=== PATIENT | male | born 1950 | race Caucasian/White ===

== ENCOUNTER 2021-06-21 12:10 | Observation (INO) | payer MEDICARE ==
[~2021-06-21] VITALS: Ht 182.9 cm; Wt 75.0 kg
--- NOTE | 2021-06-21 12:12 | NUR ---
PATIENT TO ROOM VIA WHEELCHAIR. ASSISTED TO [facility] FOR BM. BEDSIDE TRIAGE COMPLETED.
--- NOTE | 2021-06-21 13:00 | NUR ---
PT RESTING IN BED, FEELS THE URGE TO HAVE BM BUT CAN NOT
[2021-06-21 13:18] LABS: HEMATOCRIT 44.7 % (39.0-50.0); HEMOGLOBIN 14.9 g/dl (14.0-18.0); IMMATURE GRANULOCYTES 2.5 % (0.0-5.0); MEAN CELL VOLUME 92.7 fL CALC (80.0-100.0); MEAN CORPUSCULAR HGB 30.9 pG CALC (26.0-32.0); MEAN CORPUSCULAR HGB CONC 33.3 g/dL CAL (32.0-36.0); NEUT# 8.5 thou/uL (1.82-7.42); RED BLOOD COUNT 4.82 mill/uL (4.70-6.10); URINE BILIRUBIN - DIPSTICK NEGATIVE (NEGATIVE); URINE BLOOD DIPSTICK NEGATIVE (NEGATIVE); URINE COLOR YELLOW; URINE GLUCOSE - DIPSTICK >=1000 mg/dL (NEGATIVE); URINE KETONE 15 mg/dL (NEGATIVE); URINE LEUK ESTERASE NEGATIVE (NEGATIVE); URINE PH 5.5 (4.5-8.0); URINE PROTEIN - DIPSTICK NEGATIVE (NEG-TRACE); URINE SPECIFIC GRAVITY 1.015; URINE UROBILINOGEN - DIPSTICK 0.2 E.U./dL (0.2)
[2021-06-21 13:19] LABS: URINE NITRITE - DIPSTICK NEGATIVE (Negative)
[2021-06-21 13:30] LABS: ALBUMIN 3.5 g/dL (3.2-5.0); ALKALINE PHOSPHATASE 85 u/l (38-126); ANION GAP 14 (6-22 (CALC)); BILIRUBIN, TOTAL 0.7 mg/dL (0.0-1.4); BUN 23 mg/dL (8-23); BUN/CREATININE RATIO 30 (12-20 (CALC)); CARBON DIOXIDE 25 mmol/l (22-30); CHLORIDE 97 mmol/l (95-108); CREATININE 0.8 mg/dL (0.7-1.3); GFR > 60 ML/MIN (>=60 (CALC)); GFR FOR AFR.AMER. > 60 ML/MIN (>=60 (CALC)); POTASSIUM 4.7 mmol/l (3.5-5.1); SGOT/AST 16 u/l (19-48); SODIUM 131 mmol/l (137-146); TOTAL PROTEIN 6.2 g/dL (6.3-8.2)
--- NOTE | 2021-06-21 14:00 | NUR ---
PT HAD 2 MEDIUM SIZED LOOSE STOOL
[2021-06-21] MEDS ORDERED: MELOXICAM7.5 MG PO (15:09)
[2021-06-21] MEDS ORDERED: PREDNISONE5 MG PO (15:09)
[2021-06-21] MEDS ORDERED: FOLIC ACID1 MG PO (15:09)
[2021-06-21] MEDS ORDERED: METHOTREXATE S2.5 MG PO (15:09)
--- NOTE | 2021-06-21 15:15 | NUR ---
PT TRANSPORTED TO FLOOR VIA WHEELCHAIR, REPORT GIVEN TO ABY REGAN
--- NOTE | 2021-06-21 15:26 | NUR ---
PT ARRIVED TO [facility] ROOM 272 VIA WHEELCHAIR ACCOMPAINED BY ER STAFF. PT TO BSC FOR BM AT THIS TIME.
--- NOTE | 2021-06-21 15:26 | NUR ---
RECIEVED REPORT FROM SHEREEN COBOS
--- NOTE | 2021-06-21 15:40 | NUR ---
PT BACK SITTING ON SIDE OF BED. PT IS A/O X3. ASSESSMENT AND VITALS COMPLETED. RESPIRATIONS ARE EVEN AND UNLABORED WITH NO DISTRESS ON ROOM AIR. LUNG SOUNDS ARE CLEAR. HEART RHYTHM NORMAL. BOWEL SOUNDS ARE ACTIVE, BM X2 SINCE ARRIVING TO FLOOR. PT REFUSES ANY BOWEL REGIMENS DUE TO BEING UNABLE TO STOP HAVING BM. PULSES STRONG. #20G RFA INFUSING WITH IVF PER ORDER, SITE REMAINS HEALTHY AND PATENT. SKIN INTACT. ACCUCHECK RESULTING IN 310, SCHEDULED LEVEMIR ADMINISTERED. PT TOLERATED WELL.PT DENIES OF ANY PAINS OR DISCOMFORTS AT THIS TIME. ALL SAFTEY PRECAUTIONS ARE IN PLACE WITH CALL LIGHT IN REACH WITH AT BEDSIDE.
[2021-06-21 15:45] VITALS: BP 156/89
--- NOTE | 2021-06-21 16:12 | NUR ---
ANTONIA,ANRP AT BEDSIDE
--- NOTE | 2021-06-21 17:03 | NUR ---
PT COMPLAINS OF UNABLE TO VOID. 50ML OF YELLOW URINE EMPTIED FROM URINAL WHEN ARRIVED TO FLOOR. BLASDDER SCAN COMPLETED RESULTING IN 480. PELVIC DISTENDED. PT COMPLAINS OF DISCOMFORT. SIENA KNIGHT INFORMED. ORDERS TO PLACE TORIBIO CATH.
--- NOTE | 2021-06-21 17:21 | NUR ---
16F TORIBIO CATH INSTERED WITH STERILE TECHNIQUE. PT TOLERATED WELL. INSTANT CLEAR YELLOW URINE RETURN NOTED. PT EDUCATED ON TORIBIO CATH USE. PT VERBALIZED UNDERSTANDING.
--- NOTE | 2021-06-21 17:46 | NUR ---
POST RESIDUAL BLADDER SCAN COMPLETED, RESULTING IN 0. 500 ML OF CLEAR YELLOW URINE NOTED. PT STATES HE FEELS MUCH BETTER. TORIBIO REMAINS IN PLACE, FLOWING WITH GRAVITY.
--- NOTE | 2021-06-21 18:50 | NUR ---
REPORT RECIEVED FROM Kristofer MCKEON LPN
[2021-06-21 19:00] VITALS: BP 146/80
--- NOTE | 2021-06-21 20:40 | NUR ---
ASSESSMENT COMPLETED AT THIS TIME LUNG SOUNDS ARE CLEAR. HEART RHYTHM NORMAL. BOWEL SOUNDS ARE ACTIVE, PER PATIENT, MULTIPLE BOWEL MOVEMENT SINCE ARRIVING TO FLOOR. REFUSING STOOL SOFTNER AT THIS TIME. #20G RFA INFUSING WITH IVF PER ORDER, SITE REMAINS HEALTHY AND PATENT. SKIN INTACT.PT DENIES OF ANY PAINS AT THIS TIME. CALL LIGHT AND BEDSIDE TABLE WITHIN REACH.
--- NOTE | 2021-06-22 00:45 | NUR ---
PATIENT REQUESTING A BLANKET AND SOMETHING LIGHT TO EAT. BLANKET PROVIDED AND PUDDING PER REQUEST. CALL LIGHT AND BEDSIDE TABLE WITHIN REACH.
[2021-06-22 04:00] VITALS: BP 128/58
--- NOTE | 2021-06-22 04:05 | NUR ---
PATIENT SLEEPING SOUNDLY, AWOKEN BY WRITTER, NO APPARENT NEEDS AT THIS TIME. CALL LIGHT AND BEDSIDE TABLE WIHTIN REACH.
[2021-06-22 05:50] LABS: HEMATOCRIT 40.9 % (39.0-50.0); HEMOGLOBIN 13.9 g/dl (14.0-18.0); MEAN CELL VOLUME 90.9 fL CALC (80.0-100.0); MEAN CORPUSCULAR HGB 30.9 pG CALC (26.0-32.0); RED BLOOD COUNT 4.5 mill/uL (4.70-6.10); RED CELL DISTRI WIDTH 13.1 % (11.5-15.5)
[2021-06-22 06:05] LABS: BUN 19 mg/dL (8-23); BUN/CREATININE RATIO 32 (12-20 (CALC)); CALCULATED LDLCHOLESTEROL 139 mg/dL (62-129 (CALC)); CARBON DIOXIDE 25 mmol/l (22-30); CHLORIDE 105 mmol/l (95-108); CHOLESTEROL HDL RATIO 5.4 (<4.4 (CALC)); CREATININE 0.6 mg/dL (0.7-1.3); GFR > 60 ML/MIN (>=60 (CALC)); GFR FOR AFR.AMER. > 60 ML/MIN (>=60 (CALC)); HDL CHOLESTEROL 37 mg/dL (>=40); SODIUM 137 mmol/l (137-146); TOTAL CHOLESTEROL 200 mg/dl (0-199); TOTAL TRIGLYCERIDES 123 mg/dl (30-149); VLDL CHOLESTROL 25 mg/dl (0-38 (CALC))
[2021-06-22 06:39] LABS: ANION GAP 11 (6-22 (CALC)); POTASSIUM 3.6 mmol/l (3.5-5.1)
[2021-06-22 07:15] VITALS: BP 122/78
--- NOTE | 2021-06-22 07:15 | NUR ---
BEDSIDE REPORT RECEIVED. PT LYING IN BED ASLEEP, AWOKEN TO SN ENTERING ROOM. ASSESSMENT PERFORMED. NO COMPLAINTS/DISTRESS AT THIS TIME. WILL CONTINUE TO MONITOR.
--- NOTE | 2021-06-22 09:37 | NUR ---
CATHETER REMOVED. 10CC IN BALLON, END INTACT.
[2021-06-22] MEDS ORDERED: JARDIANCE10 MG PO (10:59)
[2021-06-22] MEDS ORDERED: METFORMIN500 M2 PO (10:59)
[2021-06-22] MEDS ORDERED: TAMSULOSIN0.4 MG PO (11:00)
--- NOTE | 2021-06-22 11:30 | NUR ---
BLADDER SCAN PERFORMED, 165 ML.
--- NOTE | 2021-06-22 12:54 | NUR ---
PT URINATED, CLEAR YELLOW. NO COMPLAINTS.
--- NOTE | 2021-06-22 13:21 | NUR ---
Discharge instructions given. Patient verbalizes understanding of same. Discharged in stable condition via Wheelchair to Home with family. All belongings sent with pt.
== END 2021-06-22 07:32 ==
LOC: ED 12:10 → ED-I 13:43 → ED 13:52 → MS2 13:53
PROVIDERS: Emergency Medicine; Nurse Practitioner; ADMIT Internal Medicine; ATTEND Internal Medicine
PROC: 0T9B70Z Drainage of Bladder with Drainage Device, Via Natural or Artificial Opening (ICD-10-PCS; principal; 2021-06-21)
DX: K56.41 Fecal impaction (principal); E11.65 Type 2 diabetes mellitus with hyperglycemia; I10 Essential (primary) hypertension; E87.1 Hypo-osmolality and hyponatremia; R33.9 Retention of urine, unspecified; M35.3 Polymyalgia rheumatica; Z79.52 Long term (current) use of systemic steroids; Z20.822 Contact with and (suspected) exposure to COVID-19
CPT/HCPCS: J1650

== ENCOUNTER 2021-07-14 09:34 | Emergency (ER) | payer MEDICARE ==
[~2021-07-14] VITALS: Ht 182.9 cm; Wt 75.0 kg
[~2021-07-14 09:34] MED LIST: FOLIC ACID1 MG PO; JARDIANCE10 MG PO; MELOXICAM7.5 MG PO; METFORMIN500 M2 PO; METHOTREXATE S2.5 MG PO; PREDNISONE5 MG PO; TAMSULOSIN0.4 MG PO
[2021-07-14 10:55] LABS: HEMATOCRIT 39.3 % (39.0-50.0); IMMATURE GRANULOCYTES 2.1 % (0.0-5.0); MEAN CELL VOLUME 90.6 fL CALC (80.0-100.0); MEAN CORPUSCULAR HGB CONC 33.1 g/dL CAL (32.0-36.0); NEUT# 7.71 thou/uL (1.82-7.42); RED BLOOD COUNT 4.34 mill/uL (4.70-6.10); RED CELL DISTRI WIDTH 14.1 % (11.5-15.5)
[2021-07-14 11:10] LABS: ALBUMIN 3.6 g/dL (3.2-5.0); ALKALINE PHOSPHATASE 71 u/l (38-126); ANION GAP 12 (6-22 (CALC)); BILIRUBIN, TOTAL 0.7 mg/dL (0.0-1.4); BUN 19 mg/dL (8-23); BUN/CREATININE RATIO 31 (12-20 (CALC)); CARBON DIOXIDE 25 mmol/l (22-30); CHLORIDE 104 mmol/l (95-108); CREATININE 0.6 mg/dL (0.7-1.3); GFR > 60 ML/MIN (>=60 (CALC)); GFR FOR AFR.AMER. > 60 ML/MIN (>=60 (CALC)); POTASSIUM 3.9 mmol/l (3.5-5.1); SGOT/AST 16 u/l (19-48); SODIUM 137 mmol/l (137-146); TOTAL PROTEIN 6.8 g/dL (6.3-8.2)
[2021-07-14] MEDS ORDERED: ULTRAM50 MG PO (11:33)
[2021-07-14 11:52] VITALS: BP 140/76
== END 2021-07-14 12:05 | disposition home or self-care (01) ==
LOC: ED 09:34
DX: M17.11 Unilateral primary osteoarthritis, right knee (principal); E11.9 Type 2 diabetes mellitus without complications; Z79.84 Long term (current) use of oral hypoglycemic drugs